=== PATIENT | female | born 2000 | race Caucasian/White ===

== ENCOUNTER 2021-01-15 20:00 | Emergency (ER) | payer OTHER ==
[2021-01-15 20:21] VITALS: BP 112/76; PULSE 77; TEMP 98.2; BMI 27.4
[2021-01-15] MEDS ORDERED: DIPHTH,PERTUSS(ACELL),TET 0.5 ML DISP.SYRIN IM ONE ×2 (20:57)
[2021-01-15] MEDS ORDERED: SILVER SULFADIAZINE 1% TOP CREAM 50 GM JAR TP ONE (20:57)
== END 2021-01-15 21:49 | disposition home or self-care (01) ==
LOC: JERFT 20:00
PROC: 3E0234Z Introduction of Serum, Toxoid and Vaccine into Muscle, Percutaneous Approach (ICD-10-PCS; principal; 2021-01-15)
DX: T22.111A Burn of first degree of right forearm, initial encounter (principal); X19.XXXA Contact with other heat and hot substances, initial encounter
CPT/HCPCS: 90471; 90715; 99283-25